=== PATIENT | female | born 1990 | race Caucasian/White ===

== ENCOUNTER 2016-03-28 09:21 | Emergency (ER) | payer OTHER ==
[2016-03-28 09:30] VITALS: BP 99/63
--- NOTE | 2016-03-28 09:37 | UC ---
Throat Pain/Nasal Jameel HPI - HPI Summary HPI Summary: complaint of N/V/D that started last week which resolved 2 days ago then had a sore throat- feels swollen and scratchy nasal congestion and cough dry cough has been getting fever and chills- hasn't checked temperature -no thermometer intermittent headache and both her ears feel full intermittent muscle aches has been taking sudafed and tylenol cold and flu which has been effective - History of Current Complaint Chief Complaint: UCGeneralIllness Stated Complaint: SORE THROAT Time Seen by Provider: 03/28/16 09:25 Hx Obtained From: Patient Hx Last Menstrual Period: 03/24/16 - Allergies/Home Medications Allergies/Adverse Reactions: Allergies Allergy/AdvReac Type Severity Reaction Status Date / Time No Known Allergies Allergy Verified 03/28/16 09:26 Home Medications: Home Medications [id number] W/ APAP [Tylenol Cold & Flu Severe] 2 tab PO Q4H PRN [History Confirmed 03/28/16] Pseudoephedrine TAB* [Sudafed TAB*] 30 mg PO Q6H PRN 03/28/16 [History Confirmed 03/28/16] PMH/Surg Hx/FS Hx/Imm Hx Previously Healthy: Yes - takes blood thinner Cardiovascular History Of: Reports: Cardiac Disorders - open heart surgery for hole in heart, and blood clots x2 - Surgical History Surgical History: Yes Surgery Procedure, Year, and Place: open heart surgery x3. gallbladder - Family History Known Family History: Positive: Hypertension Negative: Diabetes, Respiratory Disease - Social History Occupation: Employed Full-time Lives: With Family Alcohol Use: Rare Substance Use Type: None Smoking Status (MU): Never Smoked Tobacco - Immunization History Most Recent Influenza Vaccination: Not the 2015/2016 Season Review of Systems Constitutional: Fever, Chills, Fatigue Skin: Negative Eyes: Negative ENT: Sore Throat, Nasal Discharge Respiratory: Cough Cardiovascular: Negative Gastrointestinal: Vomiting, Diarrhea Genitourinary: Negative Motor: Negative Neurovascular: Negative Musculoskeletal: Myalgia Neurological: Headache All Other Systems Reviewed And Are Negative: Yes Physical Exam Triage Information Reviewed: Yes Appearance: No Pain Distress, Well-Nourished Vital Signs: Initial Vital Signs Temp 98.1 F 03/28/16 09:24 Pulse 78 03/28/16 09:24 Resp 16 03/28/16 09:24 BP 99/63 03/28/16 09:24 Pulse Ox 100 03/28/16 09:24 Vital Signs Reviewed: Yes Eyes: Positive: Conjunctiva Clear ENT: Positive: Pharyngeal erythema, Nasal congestion, Nasal drainage, TMs normal. Negative: Tonsillar swelling, Tonsillar exudate Neck: Positive: No Lymphadenopathy Respiratory: Positive: Lungs clear, Normal breath sounds, No respiratory distress Cardiovascular: Positive: RRR, No Murmur, Pulses Normal Abdomen Description: Positive: Nontender, No Organomegaly, Soft Bowel Sounds: Positive: Present Musculoskeletal: Positive: No Edema Neurological: Positive: Alert Psychological Exam: Normal Skin Exam: Normal Throat Pain/Nasal Course/Dx - Course Course Of Treatment: exam completed. viral syndrome - influenza like illness. refuses testing d/t cost. suppotive measures for treatment - Differential Dx/Diagnosis Differential Diagnosis/HQI/PQRI: Influenza, Pharyngitis, URI Provider Diagnoses: viral syndrome- influenza like illness Discharge - Discharge Plan Condition: Stable Disposition: HOME Patient Education Materials: Influenza (ED) Forms: *Work Release Referrals: Ruthie Godinez NP [Primary Care Provider] - Additional Instructions: TREATING THE FLU (Influenza) What is the Flu? Influenza, or "flu," is an infection of the breathing tubes and lungs. Flu happens mostly in late fall, winter, or early spring. It is very easily spread from one person to another by coughing and sneezing. The flu affects people of all ages. Symptoms Might Include: Stuffed up or runny nose Cough which may be worse at night that lasts for one to two weeks Fever especially the first 2 days and which may go up and down Headache and muscle aches Mild sore throat Poor appetite Tiredness Influenza (Flu) Vaccine Much of the illness and caused by influenza can be prevented by annual flu vaccination. It is especially recommended for people who are at high risk. Those at higher risk include all people aged 65 years or older and people of any age with chronic diseases of the heart, lung or kidneys, diabetes, immunosuppression, or severe forms of anemia. Other high-risk groups are, women who will be more than 3 months during the flu season, and children. Treatment Recommendations: Take acetaminophen (Tylenol, etc.) for aches and fever. Do not ever give aspirin to children. Drink lots of fluids. Use a cool-mist humidifier night and day if it helps you. Keep room at a comfortable temperature for you. Do not overheat the room. Do not overdress. Do not smoke. Get as much rest as you can. Call Your Doctor or Return Here IF: You have a fever that lasts for more than three days. You have trouble breathing. You begin to cough up green, yellow, or red mucous. Your cough gets worse or you have chest pain with coughing or deep breathing. You start to have any other symptoms that worry you.
== END 2016-03-28 09:53 | disposition home or self-care (01) ==
LOC: UCCORT 09:21
DX: B34.9 Viral infection, unspecified (principal); J11.1 Influenza due to unidentified influenza virus with other respiratory manifestations; Z86.718 Personal history of other venous thrombosis and embolism; Z79.01 Long term (current) use of anticoagulants; Z90.49 Acquired absence of other specified parts of digestive tract
CPT/HCPCS: 99211; G0463

== ENCOUNTER 2017-03-26 08:48 | Emergency (ER) | payer OTHER ==
[2017-03-26 09:00] VITALS: BP 99/63
[2017-03-26] MEDS ORDERED: Ondansetron ODT TAB* 4 MG PO ONE (09:06)
--- NOTE | 2017-03-26 09:16 | UC ---
Nausea/Vomiting/Diarrhea HPI - HPI Summary HPI Summary: Vomiting and diarrhea since Monday. The diarrhea is minimal. She has had upper abd cramping and vomiting. She has had her gall bladder out. She is on xarelto for prior blood clots. She has no signs of bleeding such as hematemesis or melena or BRBPR. - History of Current Complaint Chief Complaint: UCGI Stated Complaint: POSS. STOMACH BUG Time Seen by Provider: 03/26/17 08:54 Hx Obtained From: Patient Hx Last Menstrual Period: 03/19/17 Onset/Duration: Gradual Onset, Lasting Days, Still Present Timing: Constant Severity Initially: Moderate Severity Currently: Moderate Pain Intensity: 6 Location: Epigastric Character: Cramping Aggravating Factor(s): Nothing Alleviating Factor(s): Nothing Nausea/Vomiting Presence: Vomiting Vomiting Characteristics: Retching, Nonbilious Diarrhea Presence: Yes - Allergies/Home Medications Allergies/Adverse Reactions: Allergies Allergy/AdvReac Type Severity Reaction Status Date / Time No Known Allergies Allergy Verified 03/26/17 09:00 PMH/Surg Hx/FS Hx/Imm Hx Previously Healthy: No - Blood clots. - Surgical History Surgical History: Yes Surgery Procedure, Year, and Place: open heart surgery x3. gallbladder - Family History Known Family History: Positive: Hypertension Negative: Diabetes, Respiratory Disease - Social History Occupation: Employed Full-time Alcohol Use: Rare Substance Use Type: None Smoking Status (MU): Never Smoked Tobacco - Immunization History Most Recent Influenza Vaccination: Not the 2016/2016 Season Review of Systems Gastrointestinal: Abdominal Pain, Vomiting, Diarrhea All Other Systems Reviewed And Are Negative: Yes Physical Exam Triage Information Reviewed: Yes Appearance: Well-Nourished - Non toxic. pleasant. She appears nauseas. Vital Signs: Initial Vital Signs Temp 97.5 F 03/26/17 08:55 Pulse 92 03/26/17 08:55 Resp 18 03/26/17 08:55 BP 99/63 03/26/17 08:55 Pulse Ox 100 03/26/17 08:55 Vital Signs Reviewed: Yes Eyes: Positive: Conjunctiva Clear ENT: Positive: Normal ENT inspection, TMs normal, Trismus, Uvula midline Neck: Positive: Supple, Nontender, No Lymphadenopathy Respiratory: Positive: Chest non-tender, Lungs clear, Normal breath sounds, No respiratory distress, No accessory muscle use. Negative: Respiratory distress, Decreased breath sounds, Accessory muscle use, Crackles, Rhonchi, Stridor, Wheezing Cardiovascular: Positive: No Murmur, Pulses Normal, Brisk Capillary Refill Abdominal Exam: Other - epigastric tenderness without cam's sign. There is no guarding or rebound. No lower abd tenderness. Abdomen Description: Positive: No Organomegaly, Soft. Negative: Distended, Guarding Musculoskeletal: Positive: Strength Intact, ROM Intact, No Edema Neurological: Positive: Alert, Muscle Tone Normal. Negative: Fatigued Psychological: Positive: Age Appropriate Behavior Skin: Negative: rashes Naus/Vom/Diarrhea Course/Dx - Course Course Of Treatment: Upper abd pain without any worrisome features such as fevers, bleeding, guarding or signs of dehydration/ She agrees to come back for any worsening symptoms. Supportive care described in detail. - Differential Dx/Diagnosis Provider Diagnoses: vomiting Condition At Discharge: Good Discharge - Discharge Plan Condition: Good Disposition: HOME Prescriptions: Dicyclomine CAP* [Bentyl CAP*] 10 mg PO TID PRN #20 cap PRN Reason: cramp Ondansetron ODT TAB* [Zofran 4 MG Odt TAB*] 4 mg PO Q8H PRN #12 tab.odt PRN Reason: Nausea Patient Education Materials: Acute Nausea and Vomiting (ED), Abdominal Pain (ED ) Referrals: Ruthie Godinez NP [Primary Care Provider] -
== END 2017-03-26 09:14 | disposition home or self-care (01) ==
LOC: UCCORT 08:48
DX: R11.11 Vomiting without nausea (principal)
CPT/HCPCS: 99212; A9270-GY; G0463

== ENCOUNTER 2018-05-26 12:18 | Emergency (ER) | payer OTHER ==
--- NOTE | 2018-05-26 12:50 | UC ---
Hand/Wrist HPI - HPI Summary HPI Summary: 28 yo female presents with RIGHT pinky finger injury. She tells me that yesterday at work she was lifting a heavy bag of ice and her right pinky finger got caught and twisted somehow. Had mild pain at the time, but as the day went on her pain worsened and she noticed bruising, swelling, and a mild deformity. Today she is unable to straighten her finger without pain. She is right handed. Denies numbness or tingling. - History Of Current Complaint Stated Complaint: RT HAND PINKY INJURY Time Seen by Provider: 05/26/18 12:50 Hx Obtained From: Patient Hx Last Menstrual Period: 03/19/17 Onset/Duration: Sudden Onset Severity Initially: Mild Severity Currently: Moderate Pain Intensity: 6 Pain Scale Used: 0-10 Numeric - Allergies/Home Medications Allergies/Adverse Reactions: Allergies Allergy/AdvReac Type Severity Reaction Status Date / Time No Known Allergies Allergy Verified 05/26/18 12:58 PMH/Surg Hx/FS Hx/Imm Hx - Additional Past Medical History Additional PMH: IBS Blood clots - Surgical History Surgical History: Yes Surgery Procedure, Year, and Place: open heart surgery x3. gallbladder - Family History Known Family History: Positive: Hypertension Negative: Diabetes, Respiratory Disease - Social History Occupation: Employed Full-time Lives: With Family Alcohol Use: Rare Substance Use Type: None Smoking Status (MU): Never Smoked Tobacco - Immunization History Most Recent Influenza Vaccination: Not the 2016/2016 Season Review of Systems All Other Systems Reviewed And Are Negative: Yes Constitutional: Positive: Negative Skin: Positive: Negative Respiratory: Positive: Negative Cardiovascular: Positive: Negative Neurovascular: Positive: Negative Musculoskeletal: Positive: Other: - Right 5th finger pain Neurological: Positive: Negative Psychological: Positive: Negative Physical Exam - Summary Physical Exam Summary: GENERAL: NAD. WDWN. No pain distress. SKIN: No rashes, sores, lesions, or open wounds. CHEST: No accessory muscle use. Breathing comfortably and in no distress. CV: Pulses intact radial and ulnar. Cap refill <2seconds MSK: RIGHT 5th finger: Moderate TTP at PIP with mild edema and ecchymosis. S shaped mild deformity to finger. Unable to extend finger without pain at IP joint. NEURO: Alert. Sensations intact hand and all fingers. PSYCH: Age appropriate behavior. Triage Information Reviewed: Yes Vital Signs: Vital Signs: Temp Pulse Resp BP Pulse Ox 98.3 F 80 16 111/65 100 05/26/18 12:59 05/26/18 12:59 05/26/18 12:59 05/26/18 12:59 05/26/18 12:59 Vital Signs Reviewed: Yes Hand/Wrist Course/Dx - Course Course Of Treatment: XR: IMPRESSION: FLEXION DEFORMITY AT THE PROXIMAL INTERPHALANGEAL JOINT, NO EVIDENCE FOR FRACTURE. Pt was placed in a pre-made finger splint and advised to apply ice to the area. Recommend that she follow up with Orthopedics for possible extensor tendon injury. - Differential Dx/Diagnosis Provider Diagnosis: Injury of right little finger Discharge - Sign-Out/Discharge Documenting (check all that apply): Patient Departure All imaging exams completed and their final reports reviewed: Yes - Discharge Plan Condition: Stable Disposition: HOME Patient Education Materials: Finger Sprain (ED) Referrals: Ruthie Godinez NP [Primary Care Provider] - Rebel Duff MD [Medical Doctor] - As Soon As Possible Additional Instructions: If you develop a fever, shortness of breath, chest pain, new or worsening symptoms - please call your PCP or go to the ED. 1) Use the finger splint as much as possible 2) Elevate and apply ice to your finger to reduce pain and swelling 3) Please call Orthopedics at the number below to schedule a follow up appointment for further evaluation of your finger injury. - Billing Disposition and Condition Condition: STABLE Disposition: Home - Attestation Statements Provider Attestation: Per institutional requirements, I have reviewed the chart, however, I was not consulted specifically or made aware of this patient by the midlevel provider. I did not personally evaluate, interact with , or disposition this patient
[2018-05-26 13:01] VITALS: BP 111/65
[2018-05-26] MEDS ORDERED: Acetaminophen TAB* 325 MG PO ONE (13:03)
== END 2018-05-26 13:43 | disposition home or self-care (01) ==
LOC: UCCORT 12:18
DX: S60.946A Unspecified superficial injury of right little finger, initial encounter (principal); X50.0XXA Overexertion from strenuous movement or load, initial encounter
CPT/HCPCS: 73140; 99213; A9270-GY; G0463

== ENCOUNTER 2019-03-17 10:02 | Emergency (ER) | payer OTHER ==
--- OUTSIDE RECORDS SUMMARY | 2019-03-17 10:25 | XMS REPORT | Continuity of Care Document ---
:1990 External Reference #:[id number] Author Name Dorina Godinez FNP Address [address] [place] [id number] Care Team Providers Name Role Phone Dorina Godinez FIRING [employer] GAUGER - Nurse Care Team Information Lapel Stitcher Practitioner Vignesh Bell MD Care Team Information Lapel Stitcher [phone] [place], [place] - Obstetrics & Care Team Information Lapel Stitcher Gynecology Problems Active Problems Provider Date H/O: pulmonary embolus Dorina Godinez, [employer] Onset: 05/17/2016 Hypothyroidism Dorina Godinez, [employer] [employer] Onset: 04/18/2014 Bunion Dorina Godinez, [employer] Onset: 12/10/2013 Atrial septal defect Dorina Godinez, [employer] Onset: 11/28/2013 Ostium secundum type atrial septal Tricia Esparza, MSN, Onset: 2012 defect [facility] [employer] Long-term current use of ClDorina martinez, [employer] [employer] Onset: 05/17/2016 anticoagulant Endometriosis (clinical) Dorina Godinez, [employer] Onset: 05/23/2016 Tear film insufficiency Ted Ortiz MD Onset: 05/12/2017 Other injury of extensor muscle, Fouzia Mireles PA Onset: 06/01/2018 fascia and tendon of right little finger at wrist and hand level, initial encounter Solitary nodule of lung Dorina Godinez [employer] [employer] Onset: 01/28/2019 Note: Document: 01/28/19 - CT Angio Chest LLL Social History Type Date Description Comments Sex Unknown Tobacco Use Start: Unknown Never Smoked Cigarettes ETOH Use Rarely consumes alcohol Recreational Drug Use Denies Drug Use Tobacco Use Start: Unknown Patient has never smoked Smoking Status Reviewed: 02/04/19 Patient has never smoked Enjoy Exercising Patient enjoys exercising 3X PER WEEK Tattoo/Piercing Negative For Tattoo Tattoo/Piercing Pierced ears Tattoo/Piercing Pierced Navel Allergies, Adverse Reactions, Alerts Active Allergies Reaction Severity Comments Date Omnicef Hives Moderate 02/04/2019 Inactive Allergies NKDA 11/04/2009 Medications Active Medications SIG Qnty Indications Ordering Provider Date Xarelto One By Mouth AT 30tabs [place], 02/11/2015 20mg Tablets Bedtime CAROLA Cam Probiotic Formula 1 po qd *getting Unknown Plexus on line Capsules Medications Administered in Office Medication SIG Qnty Indications Ordering Provider Date Injection Promethazine Hci To Nicki Mata M.D. 03/11/2015 50 MG Injection Immunizations CPT Code Status Date Vaccine Lot # [id number] Given 03/29/2017 Influenza Virus Vaccine Quadrivalent Iiv4 [place] [id number] [id number] Given 12/10/2013 Tdap injection Vital Signs Date Vital Result Comment 02/04/2019 10:07am BP Systolic 112 mmHg BP Diastolic 70 mmHg Body Temperature 97.7 F Heart Rate 76 /min Respiratory Rate 18 /min Height 63 inches 5'3" Weight 140.25 lb BMI (Body Mass Index) 24.8 kg/m2 BSA (Body Surface Area) 1.66 m2 [place] body weight in kilograms 52 kg O2 % BldC Oximetry 97 % Ra 06/01/2018 12:57pm BP Systolic Sitting Left Arm 94 mmHg BP Diastolic Sitting Left Arm 59 mmHg Body Temperature 97.4 F Heart Rate 73 /min Height 63 inches 5'3" Weight 131.00 lb BMI (Body Mass Index) 23.2 kg/m2 BSA (Body Surface Area) 1.62 m2 [place] body weight in kilograms 52 kg O2 % BldC Oximetry 99 % Results Test Acquired Date Facility Test Result H/L Range Note CBC 01/29/2019 [facility] White Blood 4.7 K/uL 3.1-10.7 1 W/Automated [address] [place] [address] [phone] Red Blood Count 4.07 M/uL Normal 3.90-5.40 Hemoglobin 12.7 gm/dL Normal 11.6-15.8 Hematocrit 37.3 % 36.0-46.1 Mean Cell Volume 91.6 fl Normal 80.9-99.0 Mean Corpuscular HGB 31.2 pg Normal 25.9-32.7 Mean Corpuscular HGB Conc 34.0 g/dL Normal 30.8-34.3 Platelet Count 209 K/uL Normal 155-360 Red Cell Distri Width SD 43.0 fl Normal 36-47 Red Cell Distri Width %CV 12.9 % Normal 11.7-14.4 Mean Platelet Volume 11.5 fl Normal 8.9-12.4 Neut% 70.5 % Normal 40.4-72.8 Lymph % 16.9 % Low 20.0-42.0 [place] % 11.0 % Normal 4.3-13.2 Eo% 0.8 % Normal 0.0-6.6 Bas% 0.4 % Normal 0.0-1.1 Immature Grans 0.4 % Normal 0.0-5.0 NRBC % 0.0 /100WBC < 10/ 100 WBC Neut# 3.34 K/uL Normal 1.8-7.0 Lymph # 0.80 K/uL Low 1.0-4.0 [place] # 0.52 K/uL Normal 0.3-0.9 Eos # 0.04 K/uL Normal 0.0-0.5 Baso # 0.02 K/uL Normal 0.0-0.1 Immature Grans Absolute 0.02 K/uL NRBC # 0.00 K/uL Comprehensive 01/29/2019 [facility] Glucose 82 mg/dL Normal 74-106 Metabolic Panel [address] [place] [address] [phone] BUN 8 mg/dL Normal 7-18 Creatinine 0.6 mg/dL Normal 0.6-1.3 Glom Filtration Rate, Estimate >60 mL/min >60 If >60 mL/min >60 2 BUN/Creat 13.3 ratio Sodium 140 mmol/L Normal 136-145 Potassium 3.3 mmol/L Low 3.5-5.1 Chloride 114 mmol/L High 98-107 Carbon Dioxide 23 mmol/L Normal 21-32 Anion Gap 3 mEq/L Low 8-16 Calcium 7.2 mg/dL Low 8.5-10.1 Total Protein 5.5 g/dL Low 6.4-8.2 Albumin 2.7 g/dL Low 3.4-5.0 Globulin 2.8 g/dL Normal 1.9-4.3 Alb/Glob 1.0 ratio Bilirubin,Total 1.0 mg/dL Normal 0.2-1.0 Sgot/Ast 69 U/L High 15-37 SGPT/Alt 88 U/L High 12-78 Alkaline Phosphatase 73 U/L Normal 45-117 Laboratory test 01/29/2019 [facility] Magnesium 1.8 mg/dL Normal 1.6-2.6 finding [address] [place] [address] [phone] C-Reactive Protein,Quant 32.4 mg/L High <3.0 Blood Culture 01/28/2019 [facility] Blood Culture NO GROWTH: FINAL [address] Aerobic <SEE NOTE> [place] [address] [phone] Blood Culture Anaerobic NO GROWTH: FINAL <SEE NOTE> 4 Ua RFX Micro & 01/28/2019 [facility] Urine Color Light-Yellow Yellow Culture II [address] [place] [address] [phone] Urine Clarity Clear Clear Urine Glucose - Dipstick NEGATIVE mg/dL Negative Urine Bilirubin - Dipstick NEGATIVE Negative Urine Ketone NEGATIVE mg/dL Negative Urine Specific [place] 1.022 Normal 1.010-1.030 Urine Blood NEGATIVE Negative Urine PH 6.0 Low 6.5-7.5 Urine Protein - Dipstick NEGATIVE mg/dL Negative Urine Urobilinogen - Dipstick < 2.0 mg/dL < 2.0 Urine Nitrite - Dipstick NEGATIVE Negative Urine Leuk Esterase NEGATIVE Negative Source: URINE, CLEAN CAT <SEE NOTE> 5 Blood Culture 01/28/2019 [facility] Blood Culture NO GROWTH: FINAL [address] Aerobic <SEE NOTE> [place] [address] [phone] Blood Culture Anaerobic NO GROWTH: FINAL <SEE NOTE> 7 Aot Request 01/28/2019 [facility] Aot Request Already done 8, 9 [address] [place] [address] [phone] Tests to be added: magnesium crp Influenza A/B 01/28/2019 [facility] Influenza A Negative (Negative) [address] [place] [address] [phone] Influenza B Antigen Negative (Negative) 11 Lactic Acid 01/28/2019 [facility] Lactic Acid 0.9 mmol/L Normal 0.4-1.[address] [place], [place] [id number] [phone] Lab Reflex >2.0 for Sepsis? Y Occult 01/28/2019 [facility] Stool Occult NEGATIVE Negative 12, Blood,Stool [address] Blood-Single [address] [place] [address] Spec [phone] CBC 01/28/2019 [facility] White Blood 11.5 K/uL High 3.1-10.7 W/Automated [address] [place] [address] [phone] Red Blood Count 4.84 M/uL Normal 3.90-5.40 Hemoglobin 15.1 gm/dL Normal 11.6-15.8 Hematocrit 44.3 % Normal 36.0-46.1 Mean Cell Volume 91.5 fl Normal 80.9-99.0 Mean Corpuscular HGB 31.2 pg Normal 25.9-32.7 Mean Corpuscular HGB Conc 34.1 g/dL Normal 30.8-34.3 Platelet Count 257 K/uL Normal 155-360 Red Cell Distri Width SD 42.9 fl Normal 36-47 Red Cell Distri Width %CV 12.8 % Normal 11.7-14.4 Mean Platelet Volume 10.3 fl Normal 8.9-12.4 Neut% 85.6 % High 40.4-72.8 Lymph % 7.9 % Low 20.0-42.0 [place] % 4.9 % Normal 4.3-13.2 Eo% 0.9 % Normal 0.0-6.6 Bas% 0.3 % Normal 0.0-1.1 Immature Grans 0.4 % Normal 0.0-5.0 NRBC % 0.0 /100WBC < 10/ 100 WBC Neut# 9.79 K/uL High 1.8-7.0 Lymph # 0.91 K/uL Low 1.0-4.0 [place] # 0.56 K/uL Normal 0.3-0.9 Eos # 0.10 K/uL Normal 0.0-0.5 Baso # 0.04 K/uL Normal 0.0-0.1 Immature Grans Absolute 0.05 K/uL NRBC # 0.00 K/uL Comprehensive 01/28/2019 [facility] Glucose 98 mg/dL Normal 74-106 Metabolic Panel [address] [place], [place] [id number] [phone] BUN 25 mg/dL High 7-18 Creatinine 0.8 mg/dL Normal 0.6-1.3 Glom Filtration Rate, Estimate >60 mL/min >60 If >60 mL/min >60 14 BUN/Creat 31.2 ratio Sodium 138 mmol/L Normal 136-145 Potassium 3.8 mmol/L Normal 3.5-5.1 Chloride 108 mmol/L High 98-107 Carbon Dioxide 25 mmol/L Normal 21-32 Anion Gap 5 mEq/L Low 8-16 Calcium 8.6 mg/dL Normal 8.5-10.1 Total Protein 7.6 g/dL Normal 6.4-8.2 Albumin 3.8 g/dL Normal 3.4-5.0 Globulin 3.8 g/dL Normal 1.9-4.3 Alb/Glob 1.0 ratio Bilirubin,Total 0.8 mg/dL Normal 0.2-1.0 Sgot/Ast 101 U/L High 15-37 SGPT/Alt 78 U/L Normal 12-78 Alkaline Phosphatase 89 U/L Normal 45-117 Laboratory test finding 01/28/2019 [facility] Lipase 96 U/L Normal 56-289 [address] [place] [address] [phone] Troponin-I < 0.015 ng/mL 15 HCG,Serum (Qualitative) NEGATIVE (Negative) 16 Magnesium 2.0 mg/dL Normal 1.6-2.6 C-Reactive Protein,Quant < 3.0 mg/L <3.0 1 EPIGASTRIC PAIN 2 Note: Persistent reduction for 3 months or more in an eGFR <60 mL/min/1.73 m2 defines CKD. Patients with eGFR values >/=60 mL/min/1.73 m2 may also have CKD if evidence of persistent proteinuria is present. The original MDRD equation for estimated GFR is not valid for patients less than 18 years of age. Additional information may be found at www.kdoqi.org. 3 NO GROWTH: FINAL REPORT 4 NO GROWTH: FINAL REPORT 5 URINE, CLEAN CATCH 6 NO GROWTH: FINAL REPORT 7 NO GROWTH: FINAL REPORT 8 CP 9 Tests: magnesium crp Instructions: 10 EPIGASTRIC PAIN 11 Please Note: A POSITIVE result for influenza A and/or B antigen does not rule out a co-infection with other pathogens or identify any specific influenza A virus subtype. A NEGATIVE result for influenza A and/or B antigen does not preclude influenza virus infection and should not be the sole basis for treatment or other management decisions, since the antigen present in the specimen may be below the detection limit of the test. A NEGATIVE result is PRESUMPTIVE and it is recommended these results be confirmed by virus culture or an FDA-cleared influenza A and B molecular assay. Method: [employer] Chromatographic immunoassay 12 CP 13 Method: [employer] Hemoccult Card 14 Note: Persistent reduction for 3 months or more in an eGFR <60 mL/min/1.73 m2 defines CKD. Patients with eGFR values >/=60 mL/min/1.73 m2 may also have CKD if evidence of persistent proteinuria is present. The original MDRD equation for estimated GFR is not valid for patients less than 18 years of age. Additional information may be found at www.kdoqi.org. 15 0.0 - 0.045 ng/mL: Normal 0.046 - 0.5 ng/mL: Suggestive 0.6 - 1.5 ng/mL: Consistent 16 Method: [employer] One-Step Immunoassay Procedures Description No Information Available Medical Devices Description No Information Available Encounters Type Date Location Provider Dx Diagnosis Office Visit 02/04/2019 [facility] [place], K52.9 Noninfective 10:[address] Dorina, gastroenteritis and [employer] colitis, unspecified R91.1 Solitary pulmonary nodule Assessments Date Code Description Provider 02/04/2019 K52.9 Noninfective gastroenteritis and Dorina Godinez FNP colitis, unspecified 02/04/2019 R91.1 Solitary pulmonary nodule Dorina Godinez FNP 01/29/2019 Z79.01 intermediate (current) use of Monica Chopra M.D. anticoagulants 01/29/2019 K52.9 Noninfective gastroenteritis and Monica Chopra M.D. colitis, unspecified 01/29/2019 D72.829 Elevated white blood cell count, Monica Chopra M.D. unspecified 01/29/2019 R50.9 Fever, unspecified Monica Chopra M.D. 01/28/2019 R11.2 Nausea with vomiting, unspecified Monica Chopra M.D. 01/28/2019 R19.7 Diarrhea, unspecified Monica Chopra M.D. 01/28/2019 R10.13 Epigastric pain Monica Chopra M.D. 01/28/2019 Z79.01 terminal gauger (current) use of Monica Chopra M.D. anticoagulants Plan of Treatment 02/04/2019 - Dorina Godinez, JONOPK52.9 Noninfective gastroenteritis and colitis, unspecifiedComments:resolved at this time - OK to keep phenergan on hand in case of nausea in futurecontinue probioticsFollow up:As needed and for yearly physical [id number] Solitary pulmonary noduleComments:most likely benign incidental finding, but will repeat chest CT in months to monitor for change Functional Status Functional Condition Comment Date Status Independent with all ADL's Active Mental Status Description No Information Available Referrals Description No Information Available
[2019-03-17 10:57] VITALS: BP 99/59
[2019-03-17 12:25] LABS: Influenza B Molecular POSITIVE (Negative)
--- NOTE | 2019-03-17 12:26 | UC ---
Respiratory Complaint HPI - HPI Summary HPI Summary: 3 days of cough, chills, bodyaches. Taking dayquil prn w/ no relief. Recent flu exposure from co-worker this past Monday. flu shot:no - History of Current Complaint Chief Complaint: UCRespiratory Stated Complaint: FLU LIKE ILLNESS Hx Obtained From: Patient Hx Last Menstrual Period: 02/27/19 Pain Intensity: 7 Pain Scale Used: 0-10 Numeric Alleviating Factors: OTC Meds Associated Signs And Symptoms: Positive: Fever. Negative: Dyspnea, Hemoptysis - Allergies/Home Medications Allergies/Adverse Reactions: Allergies Allergy/AdvReac Type Severity Reaction Status Date / Time cefdinir Allergy Itching Verified 03/17/19 10:53 PMH/Surg Hx/FS Hx/Imm Hx - Additional Past Medical History Additional PMH: no chronic illness Previously Healthy: Yes - Surgical History Surgical History: Yes Surgery Procedure, Year, and Place: open heart surgery x3. gallbladder - Family History Known Family History: Positive: Hypertension Negative: Diabetes, Respiratory Disease - Social History Alcohol Use: Rare Substance Use Type: None Smoking Status (MU): Never Smoked Tobacco - Immunization History Most Recent Influenza Vaccination: Not the 2015/2016 Season Review of Systems All Other Systems Reviewed And Are Negative: Yes Constitutional: Positive: Fever, Chills, Fatigue Skin: Negative: Rash Respiratory: Negative: Cough Cardiovascular: Positive: Negative Gastrointestinal: Negative: Vomiting, Nausea Musculoskeletal: Positive: Myalgia Neurological: Negative: Headache Physical Exam Triage Information Reviewed: Yes Appearance: Well-Appearing Vital Signs: Initial Vital Signs Temp 97.5 F 03/17/19 10:53 Pulse 77 03/17/19 10:53 Resp 16 03/17/19 10:53 BP 99/59 03/17/19 10:53 Pulse Ox 98 03/17/19 10:53 Vital Signs Reviewed: Yes Eyes: Positive: Conjunctiva Clear ENT: Positive: Pharynx normal, TMs normal Neck: Positive: Supple, Nontender, No Lymphadenopathy Cardiovascular Exam: Normal Neurological: Positive: Alert Skin: Negative: Rashes Respiratory Course/Dx - Course Course Of Treatment: influenza + today w/ flu like illness but stable and good vitals. exam essentially unremarkable. conservative tx recommended but pt wanted tamiflu even though she was outside of window. we discussed the effectiveness of tamiflu and side effects. - Differential Dx/Diagnosis Differential Diagnosis/HQI/PQRI: Influenza, Lower Resp Infection, Other Provider Diagnosis: Influenza Discharge ED - Sign-Out/Discharge Documenting (check all that apply): Patient Departure All imaging exams completed and their final reports reviewed: No Studies - Discharge Plan Condition: Good Disposition: HOME Prescriptions: Oseltamivir SUSP 75 MG dose* [Tamiflu SUSP 75 MG dose*] 75 mg PO BID 5 Days #10 oral.syrin Patient Education Materials: Viral Syndrome (ED) Forms: *Work Release Referrals: Ruthie Godinez NP [Primary Care Provider] - Additional Instructions: if worsening please go to emergency room. - Billing Disposition and Condition Condition: GOOD Disposition: Home - Attestation Statements Provider Attestation: This patient was not seen by me. I was available for consult. Chart reviewed. ANNA
== END 2019-03-17 12:38 | disposition home or self-care (01) ==
LOC: UCCORT 10:02
DX: J11.1 Influenza due to unidentified influenza virus with other respiratory manifestations (principal); Z88.1 Allergy status to other antibiotic agents
CPT/HCPCS: 99212; G0463